=== PATIENT | female | born 1990 | race Caucasian/White ===

== ENCOUNTER 2022-06-17 06:21 | Emergency (ER) | payer BC ==
[2022-06-17] MEDS ORDERED: HYDROmorphone 1 MG/ML CARPUJECT IVP STA ×2 (07:14→09:48)
[2022-06-17] MEDS ORDERED: KETOROLAC 15 MG/ML VIAL IVP STA (07:14)
[2022-06-17] MEDS ORDERED: SODIUM CHLORIDE 0.9% 1,000 ML IV STA (07:15)
--- NOTE | 2022-06-17 07:16 | ED Physician Documentation ---
PD HPI FEMALE - Stated complaint Stated Complaint: LOW L ABD PAIN - Chief complaint Chief Complaint: Abd Pain - History obtained from History obtained from: Patient - History of Present Illness Timing - onset: Yesterday (onset yesterday morning of left lower abd pain that has persisted into today. Feeling similar to prior ovarian torsions. prior laparoscopies for treatment and had ovary tacked to wall but it recurred anyway. Had shortening of ovarian ligament and had not had episode.) Timing - duration: Days (1) Timing - details: Abrupt onset, Still present, Waxing and waning Associated symptoms: No: Fever, Vaginal pain, Vaginal bleeding, Vaginal discharge, Dysuria, Urinary frequency Contributing factors: No: , Exposed to STD Similar symptoms before: Diagnosis (prior ovarian torsions x 8 with occasional intermittent torsion that lasts just few hours.) Recently seen: Not recently seen Review of Systems Constitutional: denies: Fever, Chills Nose: denies: Rhinorrhea / runny nose, Congestion Throat: denies: Sore throat Respiratory: denies: Cough GI: reports: Abdominal Pain, Nausea. 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: Other HEENT: Tonsil/Adenoidectomy - Present Medications Home Medications: Ambulatory Orders Medication Instructions Recorded Confirmed HYDROcod/ACETAM 5/325 [[place] 5/325] 1 ea PO Q6H PRN #18 tablet 06/17/22 Naproxen 500 mg PO BID #20 tab.sr 06/17/22 Ondansetron Odt [Zofran] 4 mg TL Q6H PRN #10 tablet 06/17/22 - Allergies Allergies/Adverse Reactions: Allergies Allergy/AdvReac Type Severity Reaction Status Date / Time amoxicillin [From Augmentin] Allergy Unknown Verified 06/17/22 20:25 cefprozil [From Cefzil] Allergy Unknown Verified 06/17/22 20:25 clavulanic acid Allergy Unknown Verified 06/17/22 20:25 [From Augmentin] fentanyl Allergy Hallucinati Verified 06/17/22 20:25 ons - Living Situation Living Situation: reports: With spouse/s.o. Living Arrangement: reports: At home (recently moved a week ago from [place] (?)) - Social History Does the pt smoke?: No Smoking Status: Never smoker Does the pt drink ETOH?: Yes Does the pt have substance abuse?: No - Immunizations Immunizations are current?: Yes - POLST Patient has POLST: No PD ED PE NORMAL - Vitals Vital signs reviewed: Yes - General General: Alert and oriented X 3, No acute distress, Well developed/nourished - Cardiac Cardiac: RRR, No murmur - Respiratory Respiratory: Clear bilaterally - Abdomen Abdomen: Normal bowel sounds, Soft, Non distended, No organomegaly, Other (tender with some guarding and mild rebound locally to the LLQ/suprapubic area. No percussion tenderness. ) - Female Female : Deferred - Rectal Rectal: Deferred - Back Back: No CVA TTP - Derm Derm: Normal color Results - Vitals Vitals: Vital Signs - 24 hr 06/17/22 06/17/22 06/17/22 06:29 07:02 07:30 Temperature 36.9 C Heart Rate 82 76 70 Respiratory 16 18 18 Rate Blood Pressure 106/68 117/64 106/69 O2 Saturation 99 99 99 06/17/22 06/17/22 06/17/22 08:00 08:30 09:00 Temperature Heart Rate 62 63 63 Respiratory 19 16 17 Rate Blood Pressure 116/71 111/68 109/68 O2 Saturation 99 99 99 06/17/22 06/17/22 06/17/22 09:59 10:00 10:30 Temperature Heart Rate 94 94 70 Respiratory 16 14 18 Rate Blood Pressure 142/86 H 135/83 H 116/67 O2 Saturation 98 94 97 06/17/22 06/17/22 11:21 12:33 Temperature Heart Rate 72 82 Respiratory 18 15 Rate Blood Pressure 102/63 117/73 O2 Saturation 100 98 Oxygen O2 Source Room air - Labs Labs: Laboratory Tests 06/17/22 06/17/22 06/17/22 07:15 07:15 07:15 WBC 9.6 RBC 4.29 Hgb 13.2 Hct 39.0 MCV 90.9 MCH 30.8 MCHC 33.8 RDW 13.2 Plt Count 294 MPV 8.9 Neut # (Auto) 7.6 H Lymph # (Auto) 1.4 L [place] # (Auto) 0.4 Eos # (Auto) 0.1 Baso # (Auto) 0.1 Absolute Nucleated RBC 0.00 Nucleated RBC % 0.0 Sodium 136 Potassium 4.3 Chloride 103 Carbon Dioxide 20 L Anion Gap 13.0 BUN 11 Creatinine 0.7 Estimated GFR (MDRD) 99 Glucose 241 H Lactic Acid 0.7 Calcium 9.1 Serum HCG, Qual Urine Color Urine Clarity Urine pH Ur Specific Clay Urine Protein Urine Glucose (UA) Urine Ketones Urine Occult Blood Urine Nitrite Urine Bilirubin Urine Urobilinogen Ur Leukocyte Esterase Ur Microscopic Review Urine Culture Comments Urine HCG, Qual 06/17/22 06/17/22 06/17/22 07:15 10:30 10:30 WBC RBC Hgb Hct MCV MCH MCHC RDW Plt Count MPV Neut # (Auto) Lymph # (Auto) [place] # (Auto) Eos # (Auto) Baso # (Auto) Absolute Nucleated RBC Nucleated RBC % Sodium Potassium Chloride Carbon Dioxide Anion Gap BUN Creatinine Estimated GFR (MDRD) Glucose Lactic Acid Calcium Serum HCG, Qual NEGATIVE Urine Color YELLOW Urine Clarity CLEAR Urine pH 6.0 Ur Specific [place] 1.025 Urine Protein NEGATIVE Urine Glucose (UA) 250 H Urine Ketones 40 H Urine Occult Blood NEGATIVE Urine Nitrite NEGATIVE Urine Bilirubin NEGATIVE Urine Urobilinogen 0.2 (NORMAL) Ur Leukocyte Esterase NEGATIVE Ur Microscopic Review NOT INDICATED Urine Culture Comments NOT INDICATED Urine HCG, Qual NEGATIVE - Rads (name of study) pelvic U/S Radiology: Prelim report reviewed, See rad report, Other (US tech - normal flow in ovaries. Left ovarian hemorrhagic cyst intact without free fluid. Lot of urine in bladder. ) PD MEDICAL DECISION MAKING - ED course Complexity details: reviewed results, re-evaluated patient (she did have large amount urine in bladder after U/S and could not urinate. Had not had this previously. Consider med effect (opiods) or pain response. Hernández to drain bladder. Would not leave it though. ), considered differential (Patient with history of intermittent torsion and full torsion multiple times with several laparoscopic surgeries. Will evaluate for recurrence. Ultrasound is not in- house at this time and will be available in about 1-1/2 hours. This will be more accurate than CT, and pain >24 hrs already.), d/w patient Departure - Departure Disposition: 01 Home, Self Care Clinical Impression: Acute pain in female pelvis, Hemorrhagic cyst of ovary, Acute urinary retention Condition: Stable Record reviewed to determine appropriate education?: Yes Follow-Up: Lukasz Ken MD [Provider Admit Priv/Credential] - Prescriptions: Naproxen 500 mg PO BID #20 tab.sr HYDROcod/ACETAM 5/325 [[place] 5/325] 1 ea PO Q6H PRN #18 tablet PRN Reason: Pain Ondansetron Odt [Zofran] 4 mg TL Q6H PRN #10 tablet PRN Reason: Nausea / Vomiting Comments: Your ultrasound showed normal blood flow in both ovaries and no signs of torsion. You do have a hemorrhagic cyst on the left which likely accounts for your pain. No signs of it ruptured at this point. We can treat this with anti-inflammatories and nausea medicine and pain medicine. You did have urine significantly in the bladder that you were unable to void. This most likely is a response to the pain or medication. I would presume normal function later through the day. If you have persistent troubles urinating through the day then return to the ER. I transmitted your prescriptions to [facility] pharmacy in [place]. Follow-up with local [facility], call for an appointment this coming week. I am prescribing a short course of narcotic pain medication for you. These are potentially dangerous and addictive medications that should be used carefully. These medications may constipate you. Take an munp-ams-zzirlsb stool softener such as docusate twice daily with plenty of water while taking these medications . If you go 24 hours without a bowel movement, take [id number]-rneosyz MiraLAX, per package instructions. Do not drink or drive while taking these medications. If you received narcotic or sedating medications while in the emergency department do not drive for 24 hours. Store this medication in a safe, secure place and out of reach of children. It is a violation of federal law to give or sell this medication to another person or to use in a manner other than prescribed. The ED will not refill narcotic prescriptions, including prescriptions lost or stolen. You can dispose of unwanted medications at the [facility]'s office or at several pharmacies such as [facility]. Discharge Date/Time: 06/17/22 12:40
[2022-06-17 07:21] LABS: BASOPHILS # (AUTO) 0.1 10^3/uL (0.0-0.1); BASOPHILS % (AUTO) 0.5 %; EOSINOPHILS # (AUTO) 0.1 10^3/uL (0.0-0.7); HGB - HEMOGLOBIN 13.2 g/dL (12.0-16.0); LYMPHOCYTES # (AUTO) 1.4 10^3/uL (1.5-3.5); LYMPHOCYTES % (AUTO) 14.6 %; MEAN CORPUSCULAR HEMOGLOBIN 30.8 pg (27.0-31.0); MEAN CORPUSCULAR HGB CONC 33.8 g/dL (32.0-36.0); MEAN CORPUSCULAR VOLUME 90.9 fL (81.0-99.0); MEAN PLATELET VOLUME 8.9 fL (7.9-10.8); MONOCYTES # (AUTO) 0.4 10^3/uL (0.0-1.0); MONOCYTES % (AUTO) 3.9 %; NEUTROPHILS # (AUTO) 7.6 10^3/uL (1.5-6.6); NEUTROPHILS % (AUTO) 79.7 %; PLT - PLATELET COUNT 294 10^3/uL (130-450); RED BLOOD COUNT 4.29 10^6/uL (4.20-5.40); RED CELL DISTRIBUTION WIDTH 13.2 % (12.0-15.0); WHITE BLOOD COUNT 9.6 x10^3/uL (4.8-10.8)
[2022-06-17 07:28] LABS: CALCIUM 9.1 mg/dL (8.5-10.3); CREATININE 0.7 mg/dL (0.4-1.0); POTASSIUM 4.3 mmol/L (3.5-5.0)
[2022-06-17 09:57] LABS: HCG,QUALITATIVE BLOOD NEGATIVE
--- NOTE | 2022-06-17 10:26 | Ultrasound Report ---
PROCEDURE: Pelvic w/Doppler Complete INDICATIONS: L pelvic pain TECHNIQUE: Real-time transabdominal scanning was performed of the pelvic organs, with image documentation. Gutierrez svaginal scanning was performed, secondary to patient pain. COMPARISON: None FINDINGS: Uterus: Uterus is normal in size at 8.2 x 3.1 x 3.7 cm. Endometrium measures 5 mm in combined thick ness. Ovaries: The right ovary measures 4.1 x 2.3 x 4.9 cm, with a calculated volume of 24.5 cc and the le ft ovary measures 6.3 x 4.9 x 6.8 cm, with a calculated volume of 110 cc. There is a complex left ovarian cyst seen that measures up to 3 cm. There are less than 12 follicles seen on each side. No adnexal masses are seen. Normal-appearing arterial waveforms are confirmed to each ovary. Other: No free pelvic fluid. IMPRESSION: On these images, normal-appearing waveforms are confirmed to the ovaries. 3 cm likely hemorrhagic left ovarian cyst seen. If clinically appropriate, please consider a short-t erm follow-up ultrasound in 6 weeks to ensure resolution/improvement. Note: Concordant preliminary findings given by the cook pickled meat upon the completion of the examination to Dr. Ventura. Reviewed by: Adelfo Dupont MD on 06/17/2022 9:25 AM KHRIS Approved by: Adelfo Dupont MD on 06/17/2022 9:25 AM KHRIS Station ID: [id number]
[2022-06-17 10:37] LABS: BILIRUBIN,URINE NEGATIVE (NEGATIVE); GLUCOSE, URINE (UA) 250 mg/dL (NEGATIVE); KETONES,URINE (UA) 40 mg/dL (NEGATIVE); LEUKOCYTE ESTERASE, URINE NEGATIVE (NEGATIVE); NITRITE,URINE NEGATIVE (NEGATIVE); OCCULT BLOOD,URINE NEGATIVE (NEGATIVE); PROTEIN,URINE NEGATIVE (NEGATIVE); UROBILINOGEN,URINE 0.2 (NORMAL) E.U./dL (NORMAL)
[2022-06-17 10:40] LABS: CLARITY,URINE CLEAR (CLEAR); HCG UR QUAL NEGATIVE
[2022-06-17] MEDS ORDERED: HYDROmorphone 2 MG/ML VIAL IVP STA (11:33)
[2022-06-17 12:34] VITALS: BP 117/73
== END 2022-06-17 12:40 | disposition home or self-care (01) ==
LOC: EDBD → ED 06:21
DX: N83.202 Unspecified ovarian cyst, left side (principal); R33.9 Retention of urine, unspecified; E10.9 Type 1 diabetes mellitus without complications; R10.2 Pelvic and perineal pain
CPT/HCPCS: 36415; 51702; 76856; 80048; 81003; 81025; 83605; 84703; 85025; 93975; 96374; 96376; 99283; 99284; J1170; 81001; 87086

== ENCOUNTER 2022-06-17 20:02 | Emergency (ER) | payer BC ==
[2022-06-17 20:25] VITALS: BP 122/64
== END 2022-06-17 20:35 | disposition left against medical advice (07) ==
LOC: ED 20:02
DX: Z53.21 Procedure and treatment not carried out due to patient leaving prior to being seen by health care provider (principal)

== ENCOUNTER 2022-11-09 08:56 | Outpatient (CLI) | payer OTHER ==
--- NOTE | 2022-11-12 11:44 | Mammography Report ---
BILATERAL DIGITAL DIAGNOSTIC MAMMOGRAM 3D/2D: 11/09/2022 CLINICAL: Baseline exam. No prior exams were available for comparison. Both breasts are extremely dense, which lowers the sensitivity of mammography (category d />75% gland ular tissue). No significant masses, calcifications, or other findings are seen in either breast. IMPRESSION: INCOMPLETE: NEEDS ADDITIONAL IMAGING EVALUATION No suspicious abnormality. Fibrocystic changes. Ultrasound of the left retroareolar breast will be performed. This exam was interpreted at Station ID: [id number]. NOTE: For mammograms, a report in lay terms will be sent to the patient. Approximately 15% of breast malignancies will not be visualized mammographically. In the management of a palpable breast mass, a negative mammogram must not discourage biopsy of a clinically suspicious lesion. Electronically Signed By: Joel Bhatt M.D. jr/:11/09/2022 12:00:42 ACR BI-RADS Category 0: Incomplete 3340F PARENCHYMAL PATTERN: (VD) - The breast(s) demonstrate(s) extremely dense parenchyma, limiting the sen sitivity of mammography. BI-RADS CATEGORY: (0) - 0 Ultrasound [id number] Immediate follow-up LATERALITY: (B)
--- NOTE | 2022-11-12 11:44 | Ultrasound Report ---
LIMITED ULTRASOUND OF LEFT BREAST: 11/09/2022 CLINICAL: Diffuse left breast pain. Lt breast swelling. Skin changes at nipple. Comparison is made to exam dated: 11/09/2022 mammogram - [facility]. Color flow and real-time ultrasound of the left breast retroareolar were performed. [place] scale imag es of the real-time examination were reviewed. No significant abnormalities were seen sonographically in the left breast. IMPRESSION: NEGATIVE There is no sonographic evidence of malignancy. This exam was interpreted at Station ID: [id number]. Electronically Signed By: Joel Bhatt M.D., jr/vandana:11/09/2022 12:01:01 Ultrasound BI-RADS: 1 Negative BI-RADS CATEGORY: (1) - 1 Unspecified - other recall n/a LATERALITY: (B)
== END 2022-11-09 08:57 | disposition home or self-care (01) ==
LOC: DI 08:56
PROVIDERS: ATTEND Obstetrics & Gynecology
DX: N64.4 Mastodynia (principal); R23.4 Changes in skin texture; N62 Hypertrophy of breast; R23.8 Other skin changes; N60.12 Diffuse cystic mastopathy of left breast; N60.11 Diffuse cystic mastopathy of right breast

== ENCOUNTER 2022-11-15 14:37 | Outpatient (CLI) | payer OTHER ==
--- NOTE | 2022-11-15 17:21 | Ultrasound Report ---
PROCEDURE: Pelvic w/Transvaginal INDICATIONS: L OVARIAN CYST TECHNIQUE: Real-time scanning was performed of the pelvic organs, with image documentation. Additional endovagi nal scanning was necessary due to incomplete visualization of the adnexal and endometrial structures by transabdominal scanning. COMPARISON: None. FINDINGS: Uterus: Uterus is anteverted and normal in size at 6.6 x 3.4 x 4.0 cm. The myometrium is homogeneou s. The endometrium measures 2.7 mm in combined thickness. There are nabothian cysts, the largest me asuring 8 x 4 x 9 mm. Ovaries: The right ovary measures 5.3 x 2.7 x 4.1 cm, with a calculated ovarian volume of 31.1 cc. The left ovary measures 4.5 x 2.3 x 3.7 cm, with a calculated ovarian volume of 19.7 cc. Both ovaries have a normal ultrasound appearance. Greater than 12 follicles are seen in the left ovary. Less than 12 follicles are seen in the right ovary.. No adnexal masses are seen. Other: No pathologic free abdominal or pelvic fluid. IMPRESSION: 1. The left ovary has a heterogenous appearance with minimal peripheral flow. 2. Both ovaries demonstrate vascular flow, decreased on the left. Please correlate clinically. 3. 112 follicles in the left ovary. Reviewed by: Juan C Roldan on 11/15/2022 5:20 PM PST Approved by: Juan C Roldan on 11/15/2022 5:20 PM PST Station ID: [id number]
== END 2022-11-15 14:38 | disposition home or self-care (01) ==
LOC: DI 14:37
PROVIDERS: ATTEND Obstetrics & Gynecology
DX: N92.6 Irregular menstruation, unspecified (principal); N83.8 Other noninflammatory disorders of ovary, fallopian tube and broad ligament; R10.2 Pelvic and perineal pain; G89.29 Other chronic pain

== ENCOUNTER 2023-12-09 08:00 | Outpatient (CLI) | payer OTHER ==
[2023-12-09 16:55] LABS: BILIRUBIN,URINE NEGATIVE (NEGATIVE); GLUCOSE, URINE (UA) NEGATIVE (NEGATIVE); KETONES,URINE (UA) 15 mg/dL (NEGATIVE); LEUKOCYTE ESTERASE, URINE NEGATIVE (NEGATIVE); NITRITE,URINE NEGATIVE (NEGATIVE); OCCULT BLOOD,URINE NEGATIVE (NEGATIVE); PROTEIN,URINE NEGATIVE (NEGATIVE); UROBILINOGEN,URINE 0.2 (NORMAL) E.U./dL (NORMAL)
[2023-12-09 17:05] LABS: AMORPHOUS SEDIMENT,UR Moderate /LPF; BACTERIA,URINE Few /HPF (None Seen); CLARITY,URINE CLEAR (CLEAR); RBC,URINE None Seen /HPF (0-5); SQUAMOUS EPITHELIAL CELL,UR FEW Squamous (<= Few); WBC,URINE 0-3 /HPF (0-5)
== END 2023-12-09 23:59 | disposition home or self-care (01) ==
LOC: LAB.WC 08:00
PROVIDERS: ATTEND Obstetrics & Gynecology
DX: Z34.90 Encounter for supervision of normal pregnancy, unspecified, unspecified trimester (principal)
CPT/HCPCS: 81001; 87086

== ENCOUNTER 2023-12-10 09:42 | Outpatient (CLI) | payer OTHER ==
[2023-12-10 10:11] LABS: BASOPHILS % (AUTO) 0.4 %; EOSINOPHILS # (AUTO) 0.1 10^3/uL (0.0-0.7); EOSINOPHILS % (AUTO) 1.3 %; HCT - HEMATOCRIT 35.2 % (37.0-47.0); LYMPHOCYTES # (AUTO) 2.2 10^3/uL (1.5-3.5); LYMPHOCYTES % (AUTO) 22.7 %; MEAN CORPUSCULAR HEMOGLOBIN 30.5 pg (27.0-31.0); MEAN CORPUSCULAR HGB CONC 34.1 g/dL (32.0-36.0); MEAN CORPUSCULAR VOLUME 89.3 fL (81.0-99.0); MEAN PLATELET VOLUME 8.4 fL (7.9-10.8); MONOCYTES # (AUTO) 0.5 10^3/uL (0.0-1.0); NEUTROPHILS # (AUTO) 6.7 10^3/uL (1.5-6.6); NEUTROPHILS % (AUTO) 70.4 %; PLT - PLATELET COUNT 319 10^3/uL (130-450); RED BLOOD COUNT 3.94 10^6/uL (4.20-5.40); WHITE BLOOD COUNT 9.6 x10^3/uL (4.8-10.8)
[2023-12-11 03:11] LABS: HBsAG SCREEN Negative (Negative); HCV AB Non Reactive (Non Reactive)
[2023-12-11 05:10] LABS: HIV SCREEN 4TH GENERATION Non Reactive (Non Reactive); RPR Non Reactive (Non Reactive)
[2023-12-11 12:09] LABS: VARICELLA-ZOSTER AB IGG 464 index (Immune >165)
== END 2023-12-10 09:43 | disposition home or self-care (01) ==
LOC: LAB 09:42
PROVIDERS: ATTEND Obstetrics & Gynecology
DX: Z34.90 Encounter for supervision of normal pregnancy, unspecified, unspecified trimester (principal)
CPT/HCPCS: 36415; 85025; 86592; 86762; 86787; 86803; 86850; 86900; 86901; 87340; 87389

== ENCOUNTER 2023-12-20 07:51 | Outpatient (CLI) | payer OTHER ==
--- NOTE | 2023-12-20 19:32 | Ultrasound Report ---
PROCEDURE: OB 1st Trimester w/TV INDICATIONS: POSITIVE TEST OUTSIDE/PRIOR DATING DATA: Last menstrual period (LMP): 10/24/2023. LMP-based estimated date of delivery (KJ): 07/30/2024. First dating scan (date and location): 12/20/2023. Estimated date of delivery (KJ) from first dating scan: 08/01/2024. TECHNIQUE: Real-time scanning was performed of the fetus and maternal pelvic organs, with image documentation. Endovaginal scanning was also performed to better visualize the fetus and maternal ovaries. COMPARISON: None. FINDINGS: Intrauterine gestational sac present. Embryo: [place]-rump length measures 1.5 cm corresponding to 7 weeks 6 days. Heart rate: 167 bpm. Other: Small perigestational hemorrhage is present measuring 7 x 6 x 7 mm. Measurement variability in dating: +/- 4 weeks by LMP, +/- 7 days by mean sac diameter (use before 6 weeks gestation if crown-rump length not able to be measured), +/- 5 days by crown-rump length (6-12 weeks gestation). Maternal organs: Ovaries appear within normal limits. IMPRESSION: Single live intrauterine is identified measuring 7 weeks 6 days. Small subchorionic hemorrhage is present. Reviewed by: Анна Carcamo MD on 12/20/2023 7:30 PM PST Approved by: Анна Carcamo MD on 12/20/2023 7:30 PM PST Station ID: [id number]
== END 2023-12-20 07:52 | disposition home or self-care (01) ==
LOC: DI 07:51
PROVIDERS: ATTEND Nurse Practitioner
DX: O20.8 Other hemorrhage in early pregnancy (principal); Z3A.01 Less than 8 weeks gestation of pregnancy

== ENCOUNTER 2024-01-03 08:00 | Outpatient (CLI) | payer OTHER ==
[2024-01-03 20:39] LABS: CHLAMYDIA TRACHOMATIS DNA NEGATIVE (NEGATIVE); NEISSERIA GONORRHOEAE DNA NEGATIVE (NEGATIVE); TRICHOMONAS VAGINALIS DNA NEGATIVE (NEGATIVE)
== END 2024-01-03 23:59 | disposition home or self-care (01) ==
LOC: LAB.WC 08:00
PROVIDERS: ATTEND Obstetrics & Gynecology
DX: Z11.3 Encounter for screening for infections with a predominantly sexual mode of transmission (principal)
CPT/HCPCS: 87491; 87591; 87661

== ENCOUNTER 2024-01-07 09:28 | Outpatient (CLI) | payer OTHER ==
[2024-01-07 09:51] LABS: TOTAL PROTEIN,URINE TIMED < 4 mg/dL
[2024-01-07 10:12] LABS: ALBUMIN 4.2 g/dL (3.2-5.5); ALBUMIN/GLOBULIN RATIO 2.2 (1.0-2.2); BILIRUBIN,TOTAL 0.4 mg/dL (0.2-1.0); CALCIUM 9.2 mg/dL (8.5-10.3); CREATININE 0.5 mg/dL (0.6-1.3); POTASSIUM 3.7 mmol/L (3.5-4.5); TOTAL PROTEIN 6.1 g/dL (6.4-8.9)
[2024-01-07 10:52] LABS: ESTIMATED AVERAGE GLUCOSE 108 mg/dL (70-100); HEMOGLOBIN A1c% 5.4 % (4.27-6.07)
== END 2024-01-07 09:29 | disposition home or self-care (01) ==
LOC: LAB 09:28
PROVIDERS: ATTEND Obstetrics & Gynecology
DX: O24.011 Pre-existing type 1 diabetes mellitus, in pregnancy, first trimester (principal); E10.9 Type 1 diabetes mellitus without complications; O09.891 Supervision of other high risk pregnancies, first trimester
CPT/HCPCS: 36415; 80053; 82570; 83036; 84156

== ENCOUNTER 2024-01-10 12:38 | Outpatient (CLI) | payer OTHER ==
[2024-01-10 12:49] LABS: HCT - HEMATOCRIT 33.3 % (37.0-47.0); HGB - HEMOGLOBIN 10.9 g/dL (12.0-16.0); MEAN CORPUSCULAR HEMOGLOBIN 30.7 pg (27.0-31.0); MEAN CORPUSCULAR HGB CONC 32.7 g/dL (32.0-36.0); MEAN CORPUSCULAR VOLUME 93.8 fL (81.0-99.0); MEAN PLATELET VOLUME 8.4 fL (7.9-10.8); RED BLOOD COUNT 3.55 10^6/uL (4.20-5.40); RED CELL DISTRIBUTION WIDTH 13.6 % (12.0-15.0); WHITE BLOOD COUNT 9.9 x10^3/uL (4.8-10.8)
== END 2024-01-10 12:39 | disposition home or self-care (01) ==
LOC: LAB 12:38
PROVIDERS: ATTEND Obstetrics & Gynecology
DX: O09.891 Supervision of other high risk pregnancies, first trimester (principal); O24.011 Pre-existing type 1 diabetes mellitus, in pregnancy, first trimester; E10.9 Type 1 diabetes mellitus without complications
CPT/HCPCS: 36415; 85027

== ENCOUNTER 2024-01-11 16:50 | Inpatient (IN) | payer OTHER ==
[2024-01-11] MEDS ORDERED: SODIUM CHLORIDE FLUSH 0.9% 10 ML SYRINGE IVP PRN (18:15)
[2024-01-11] MEDS: ACETAMINOPHEN 325 MG TABLET PO PRN (18:39)
[2024-01-11 19:04] LABS: BASOPHILS # (AUTO) 0.1 10^3/uL (0.0-0.1); BASOPHILS % (AUTO) 0.5 %; EOSINOPHILS # (AUTO) 0.1 10^3/uL (0.0-0.7); EOSINOPHILS % (AUTO) 1.3 %; HCT - HEMATOCRIT 31.1 % (37.0-47.0); HGB - HEMOGLOBIN 10.3 g/dL (12.0-16.0); LYMPHOCYTES # (AUTO) 2.7 10^3/uL (1.5-3.5); MEAN CORPUSCULAR HEMOGLOBIN 30.4 pg (27.0-31.0); MEAN CORPUSCULAR HGB CONC 33.1 g/dL (32.0-36.0); MEAN CORPUSCULAR VOLUME 91.7 fL (81.0-99.0); MEAN PLATELET VOLUME 8.4 fL (7.9-10.8); MONOCYTES # (AUTO) 0.7 10^3/uL (0.0-1.0); MONOCYTES % (AUTO) 6.7 %; NEUTROPHILS # (AUTO) 6.2 10^3/uL (1.5-6.6); NEUTROPHILS % (AUTO) 63.2 %; PLT - PLATELET COUNT 293 10^3/uL (130-450); RED BLOOD COUNT 3.39 10^6/uL (4.20-5.40); RED CELL DISTRIBUTION WIDTH 13.5 % (12.0-15.0); WHITE BLOOD COUNT 9.8 x10^3/uL (4.8-10.8)
[2024-01-11 19:17] LABS: ALBUMIN 3.8 g/dL (3.2-5.5); ALBUMIN/GLOBULIN RATIO 1.9 (1.0-2.2); BILIRUBIN,TOTAL 0.4 mg/dL (0.2-1.0); CREATININE 0.4 mg/dL (0.6-1.3); POTASSIUM 3.6 mmol/L (3.5-4.5); TOTAL PROTEIN 5.8 g/dL (6.4-8.9)
[2024-01-11] MEDS: SODIUM CHLORIDE 0.9% 1,000 ML IV SCH ×2 (19:26→23:32)
[2024-01-11] MEDS: PROCHLORPERAZINE 10 MG/2 ML VIAL IVP PRN (19:26)
[2024-01-11 20:33] LABS: BILIRUBIN,URINE NEGATIVE (NEGATIVE); GLUCOSE, URINE (UA) NEGATIVE (NEGATIVE); KETONES,URINE (UA) NEGATIVE (NEGATIVE); LEUKOCYTE ESTERASE, URINE NEGATIVE (NEGATIVE); NITRITE,URINE NEGATIVE (NEGATIVE); OCCULT BLOOD,URINE NEGATIVE (NEGATIVE); PROTEIN,URINE NEGATIVE (NEGATIVE); UROBILINOGEN,URINE 0.2 (NORMAL) E.U./dL (NORMAL)
[2024-01-11 20:34] LABS: CLARITY,URINE CLEAR (CLEAR)
--- NOTE | 2024-01-11 21:12 | HISTORY & PHYSICAL EXAMINATION ---
History and Physical - History and Physical 33 yo G1 with IUP at 11w 2d presents for hydration and nausea control. She has been feeling really crappy and spilling ketones since before . She last vomited 2/16 am but is struggling to eat. She has had to use many more units of insulin than normal, trying to her sugars under control. She feels exhausted, stressed. She has been using reglan and zofran at home orally. The zofran seems to help more than reglan. Last dose of zofran 3 pm. last reglan noon. Medical hx: 1. T1DM since age 7. DKA many times before she turned 20. she currently uses a Tandem pump with Control IQ. She has seen [facility] to help manage her insulin during . Her last HbA1c 5.4%. 2. POTS dx age 14. medicated until about age 20. Now feels her sx are under control 3. long standing diarrhea with previous work up including colonoscopy. father has this also. W/U has been negative. currently symptoms are ok. 4. Chronic pelvic pain 5. Ovarian torsion. She has had 8 laparoscopies for this and all but first time was on left side. Left ovary was tied to the side wall but that did not improve her symptoms. She feels a bit like this is starting again now, but says recently the episodes have resolved on their own and that they are not seen well on ultrasound. 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 with this she did not get her menses. Ovarian torsions as above. [place] [facility] [place] but then not seen after that. No STDs, no abnormal paps. Substance Use: Never smoker. min alcohol use before , not since. FAmily Hx: Diabetes -none Depression both her parents. ROS: some shortness of breath. no cough. some left pain under her ribs, an achy pressure. left pelvis pain like with her torsions. but not too bad. bowels - has had a few bms today. no constipation. urine- uncomfortable to hold it but not dysuria. maybe more frequency. 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 Physical exam: wearing mask. no respiratory distress. heart. rrr abdomen no palpable mass. extremities no edema. Labs: UA with no ketones here. specific gravity < 1.050. hct 33% CMP normal. A/P T1DM with early , feeling really crappy and spilling ketones at home. scared and tired. struggling to manage her sugars and insulin. here for IV hydration and nausea management. will admit overnight and reassess in am. Likely will need to be set up for regular ivs. but will see how she does.
[2024-01-11] MEDS: ENOXAPARIN 40 MG/0.4 ML SYRINGE SUBQ SCH (21:44)
[2024-01-11] MEDS: ONDANSETRON 4 MG/2 ML VIAL IVP PRN (21:45)
[2024-01-11] MEDS: FAMOTIDINE 20 MG/2 ML VIAL IVP SCH (21:45)
[2024-01-11 21:52] LABS: B. PARAPERTUSSIS- RESP PCR PAN NOT DETECTED; B. PERTUSSIS- RESP PCR PANEL NOT DETECTED; C. PNEUMONIAE- RESP PCR PANEL NOT DETECTED; CORONAVIRUS 229E-RESP PCR NOT DETECTED; CORONAVIRUS HKU1-RESP PCR NOT DETECTED; CORONAVIRUS NL63-RESP PCR NOT DETECTED; CORONAVIRUS OC43-RESP PCR NOT DETECTED; HUMAN METAPNEUMOVIRUS NOT DETECTED; INFLUENZA A- RESP PCR PANEL NOT DETECTED; INFLUENZA B - RESP PCR PANEL NOT DETECTED; M. PNEUMONIAE- RESP PCR PANEL NOT DETECTED; PARAINFLUENZA VIRUS 1 NOT DETECTED; PARAINFLUENZA VIRUS 2 NOT DETECTED; PARAINFLUENZA VIRUS 3 NOT DETECTED; PARAINFLUENZA VIRUS 4 NOT DETECTED; RHINOVIRUS/ENTEROVIRUS NOT DETECTED; RSV- RESP PCR PANEL NOT DETECTED; SARS-CoV-2 -RESP PCR PANEL NOT DETECTED
[2024-01-11] MEDS: SODIUM CHLORIDE FLUSH 0.9% 10 ML SYRINGE IVP SCH (23:37)
[2024-01-12 08:23] VITALS: BP 92/51; O2SAT 97
--- NOTE | 2024-01-12 14:24 | DISCHARGE SUMMARY ---
Discharge Summary Admit Date: 01/11/24 Discharge Date: 01/12/24 Discharging Provider: Florence Silver MD Code Status: Attempt Resuscitation Condition at Discharge: Good - DIAGNOSES Discharge Diagnoses with Status of Each Condition: at 11 weeks, hyperemesis, T1DM. symptoms improved at time of discha rge. - HPI History of Present Illness: 11 weeks wiht her first child. feeling very crappy at home. unable to manage her sugar and insulin well. spilling ketones in her urine. felt she needed to come in for hydration. no bleeding. - HOSPITAL COURSE Hospital Course: admitted for NS hydration. no vomiting while she was here. but did require multiple doses of antiemetics. by morning felt better and ready to go home. slept better here than at home. - ALLERGIES Allergies/Adverse Reactions: Allergies Allergy/AdvReac Type Severity Reaction Status Date / Time amoxicillin [From Augmentin] Allergy Unknown Verified 06/17/22 20:25 cefprozil [From Cefzil] Allergy Unknown Verified 06/17/22 20:25 clavulanic acid Allergy Unknown Verified 06/17/22 20:25 [From Augmentin] fentanyl Allergy Hallucinati Verified 06/17/22 20:25 ons - MEDICATIONS Home Medications: Ambulatory Orders Medication Instructions Recorded Confirmed Ondansetron Odt [Zofran] 4 mg TL Q6H PRN #10 tablet 06/17/22 Insulin Aspart [Insulin Aspart 100 unit SUBQ DAILY 01/12/24 Flexpen] Metoclopramide [Reglan] 10 mg PO QID PRN 01/12/24 - PHYSICAL EXAM AT DISCHARGE General Appearance: positive: No acute distress Abdomen: positive: Non-tender (ultrasound done to see live IUP. about 11 week size. ) Extremities: positive: Non-tender, No pedal edema Neurologic/Psychiatric: positive: Oriented x3 - LABS Result Diagrams: 01/11/24 18:56 01/11/24 18:56 - SEPSIS Current Stage of Sepsis: Ruled out - FOLLOW UP Follow Up: as scheduled with us and [facility] - TIME SPENT Time Spent in Discharge (Minutes): 20
== END 2024-01-12 10:57 | disposition home or self-care (01) | DRG 832 ==
LOC: MS2 17:27
PROVIDERS: ADMIT Obstetrics & Gynecology; ATTEND Obstetrics & Gynecology
DX: O21.0 Mild hyperemesis gravidarum (principal); O24.011 Pre-existing type 1 diabetes mellitus, in pregnancy, first trimester; Z3A.11 11 weeks gestation of pregnancy; O99.891 Other specified diseases and conditions complicating pregnancy; R10.2 Pelvic and perineal pain
CPT/HCPCS: 36415; 80053; 81003; 83735; 85025; 87086; 87633; A9270; J1650; 81001

== ENCOUNTER 2024-02-21 12:26 | Outpatient (CLI) | payer OTHER ==
[2024-02-24 13:10] LABS: AFP MOM 1.05 (.); AFP VALUE 34.1 ng/mL (.); GEST. AGE ON COLLECTION DATE 17.1 weeks (.); INSULIN DEP DIABETES Yes (.); MULTIPLE GESTATION No (.); OPEN SPINA BIFIDA RISK 1 IN 3147 (.); RACE Caucasian (.); RESULTS Report (.); TEST RESULTS *Screen Negative* (.); WEIGHT 143 lbs (.)
== END 2024-02-21 12:27 | disposition home or self-care (01) ==
LOC: LAB 12:26
PROVIDERS: ATTEND Nurse Practitioner
DX: O09.892 Supervision of other high risk pregnancies, second trimester (principal)
CPT/HCPCS: 36415; 82105

== ENCOUNTER 2024-04-10 19:33 | Outpatient (CLI) | payer OTHER ==
--- NOTE | 2024-04-12 07:19 | Ultrasound Report ---
PROCEDURE: OB Follow up INDICATIONS: SUPERVISION OF OUTSIDE/PRIOR DATING DATA: Last menstrual period (LMP): 10/24/2023. LMP-based estimated date of delivery (KJ): 07/30/2024. First dating scan (date and location): 12/20/2023. Estimated date of delivery (KJ) from first dating scan: 08/01/2024. The below data below was generated using the ultrasound KJ of 08/01/2024 TECHNIQUE: Real-time scanning was performed of the fetus, with image documentation and biometric measurements. Endovaginal scanning: Not performed. COMPARISON: None. FINDINGS: General: A single living intrauterine gestation is present. Presentation: Vertex/variable Placenta: Placental position is anterior, without previa. Amniotic fluid index: 18.5 cm, within normal limits for gestational age. heart rate: 152 beats per minute. Maternal cervical canal: 3.7 cm long; normal length is 2.5 cm or more. biometrics: Biparietal diameter: 6.02 cm, 24 weeks 4 days, 68.9% Head circumference: 23.2 cm, 25 weeks 2 days, 82.5% Abdominal circumference: 20.6 cm, 25 weeks 1 day, 80.3% Femur length: 4.3 cm, 24 weeks 1 day, 45.7% Estimated gestational age from initial scan: 23 weeks, 6 days Composite gestational age from present scan: 24 weeks, 6 days Estimated weight and percentile: 730.4 g, 82.0% Measurement variability in biometric dating: +/- 10 days from 12-20 weeks gestation, +/- 2 weeks from 20-30 weeks gestation, +/- 3 weeks at 30 weeks gestation or more. Other: Not applicable. IMPRESSION: 1. Single live intrauterine gestation with a composite gestational age of 24 weeks, 6 days which is c oncordant with dates by initial scan. 2. Estimated weight percentile is 82%. Reviewed by: Ana Luisa Morin MD on 04/12/2024 7:17 AM PDT Approved by: Ana Luisa Morin MD on 04/12/2024 7:17 AM PDT Station ID: [id number]
== END 2024-04-10 19:34 | disposition home or self-care (01) ==
LOC: DI 19:33
PROVIDERS: ATTEND Nurse Practitioner
DX: O09.892 Supervision of other high risk pregnancies, second trimester (principal); O24.012 Pre-existing type 1 diabetes mellitus, in pregnancy, second trimester; Z3A.24 24 weeks gestation of pregnancy

== ENCOUNTER 2024-04-23 16:26 | Outpatient (CLI) | payer OTHER ==
[2024-04-23 16:49] LABS: HCT - HEMATOCRIT 32.4 % (37.0-47.0); HGB - HEMOGLOBIN 11.1 g/dL (12.0-16.0); MEAN CORPUSCULAR HEMOGLOBIN 31.1 pg (27.0-31.0); MEAN CORPUSCULAR HGB CONC 34.3 g/dL (32.0-36.0); MEAN CORPUSCULAR VOLUME 90.8 fL (81.0-99.0); MEAN PLATELET VOLUME 8.5 fL (7.9-10.8); RED BLOOD COUNT 3.57 10^6/uL (4.20-5.40); RED CELL DISTRIBUTION WIDTH 13.4 % (12.0-15.0); WHITE BLOOD COUNT 9.9 x10^3/uL (4.8-10.8)
[2024-04-23 17:07] LABS: CREATININE,URINE 127.1 mg/dL; PROTEIN/CREATININE RATIO,URINE 0.1 (<=0.2)
[2024-04-23 17:08] LABS: ALBUMIN 3.5 g/dL (3.2-5.5); ALBUMIN/GLOBULIN RATIO 1.8 (1.0-2.2); BILIRUBIN,TOTAL 0.4 mg/dL (0.2-1.0); CALCIUM 8.9 mg/dL (8.5-10.3); CREATININE 0.8 mg/dL (0.6-1.3); POTASSIUM 3.7 mmol/L (3.5-4.5); TOTAL PROTEIN 5.5 g/dL (6.4-8.9)
[2024-04-23 17:25] LABS: FERRITIN 15.7 ng/mL (11.0-306.8)
[2024-04-23 20:59] LABS: ESTIMATED AVERAGE GLUCOSE 117 mg/dL (70-100); HEMOGLOBIN A1c% 5.7 % (4.27-6.07)
[2024-04-24 04:09] LABS: RPR Non Reactive (Non Reactive)
== END 2024-04-23 16:27 | disposition home or self-care (01) ==
LOC: LAB 16:26
PROVIDERS: ATTEND Nurse Practitioner
DX: O99.012 Anemia complicating pregnancy, second trimester (principal); O09.892 Supervision of other high risk pregnancies, second trimester; O24.012 Pre-existing type 1 diabetes mellitus, in pregnancy, second trimester; E10.9 Type 1 diabetes mellitus without complications
CPT/HCPCS: 36415; 80053; 82570; 82728; 83036; 84156; 85027; 86592

== ENCOUNTER 2024-06-02 08:00 | Outpatient (CLI) | payer OTHER ==
[2024-06-02 15:56] LABS: BILIRUBIN,URINE NEGATIVE (NEGATIVE); GLUCOSE, URINE (UA) NEGATIVE (NEGATIVE); KETONES,URINE (UA) NEGATIVE (NEGATIVE); LEUKOCYTE ESTERASE, URINE NEGATIVE (NEGATIVE); NITRITE,URINE NEGATIVE (NEGATIVE); OCCULT BLOOD,URINE NEGATIVE (NEGATIVE); PROTEIN,URINE NEGATIVE (NEGATIVE); UROBILINOGEN,URINE 0.2 (NORMAL) E.U./dL (NORMAL)
[2024-06-02 15:57] LABS: CLARITY,URINE CLEAR (CLEAR)
[2024-06-02 16:05] LABS: RUPTURE OF MEMBRANES PLUS NEGATIVE (NEGATIVE)
[2024-06-02 16:24] LABS: BACTERIA,URINE None Seen /HPF (None Seen); EPITHELIAL CELLS,UR RARE Transitional /HPF (<= Few); RBC,URINE None Seen /HPF (0-5); SQUAMOUS EPITHELIAL CELL,UR RARE Squamous (<= Few); WBC,URINE 0-3 /HPF (0-5)
[2024-06-02 23:21] LABS: BACTERIAL VAGINOSIS DNA NEGATIVE (NEGATIVE); CANDIDA GLABRATA DNA NEGATIVE (NEGATIVE); CANDIDA GROUP DNA NEGATIVE (NEGATIVE); CANDIDA KRUSEI DNA NEGATIVE (NEGATIVE); TRICHOMONAS VAGINALIS DNA NEGATIVE (NEGATIVE)
== END 2024-06-02 23:59 | disposition home or self-care (01) ==
LOC: LAB.WC 08:00
PROVIDERS: ATTEND Obstetrics & Gynecology
DX: O09.93 Supervision of high risk pregnancy, unspecified, third trimester (principal)
CPT/HCPCS: 81001; 81514; 84112; 87086

== ENCOUNTER 2024-06-27 11:52 | Outpatient (CLI) | payer OTHER ==
[2024-06-27 12:31] VITALS: BP 97/53
--- NOTE | 2024-06-27 13:18 | PROVIDER PROGRESS NOTE ---
- HPI Chief Complaint: Decreased movement Current : Vital Signs Temperature 98.4 F 06/27/24 12:25 Heart Rate 89 06/27/24 12:25 Respiratory Rate 17 06/27/24 12:25 Blood Pressure 97/53 L 06/27/24 12:25 Temperature 98.4 F 06/27/24 12:25 Heart Rate 89 06/27/24 12:25 Respiratory Rate 17 06/27/24 12:25 Blood Pressure 97/53 L 06/27/24 12:25 O2 Saturation If not protocol: Oxygen Flow, liters/minute - Procedures OB Procedure Performed: NST Diagnosis/Indication for NST: Decreased movement NST Procedure: EFM: 140s, moderate variability, positive 15x15 accelerations, no decelerations [place]: No regular contractions NST reactive/Cat 1 Performed and read 06/27/24 Service Date of procedure: 06/27/24 - Plan Plan: 33yo at 35.2w presenting with concern of decreased movement. She has been having diarrhea last couple days and not feeling well so she wanted to make sure baby was well since she felt less movement this morning. Denies contractions, leaking fluid, bleeding. Some nausea, no vomiting, no pain. She has felt movement here in triage now and feels reassured with FHR. She feels diarrhea is less frequent and she was able to eat some toast this am. complicated by DM1, she has continuous glucose monitor and insulin pump. BS 80s when not feeling well and so she has required less insulin. Comfortable with glucose/insulin management. VSS as above GEN: NAD CV: Regular rate Resp: Breathing unlabored Abd: soft, nt Ext: nt, no edema NST reactive 33yo at 35.2w initially with decreased movement, also likely gastroenteritis resolving - NST reactive - Follow up as scheduled in 2 days, return precautions given
== END 2024-06-27 13:30 | disposition home or self-care (01) ==
LOC: WFO 11:52 → FBP 11:53 → WFO 13:30
PROVIDERS: ATTEND Obstetrics & Gynecology
DX: O36.8130 Decreased fetal movements, third trimester, not applicable or unspecified (principal); O99.891 Other specified diseases and conditions complicating pregnancy; R19.7 Diarrhea, unspecified; O24.013 Pre-existing type 1 diabetes mellitus, in pregnancy, third trimester; Z3A.35 35 weeks gestation of pregnancy
CPT/HCPCS: 59025; 99214; 99215